=== PATIENT | male | born 1975 | race American Indian/Alaskan Native ===

== ENCOUNTER 2016-10-09 17:51 | Emergency (ER) | payer SELFPAY ==
--- NOTE | 2016-10-09 22:03 | Emergency Department Report ---
Chief Complaint: Dental/Oral Stated Complaint: TOOTHACHE Time Seen by Provider: 10/09/16 21:45 - HPI History of Present Illness: 41-year-old male presents today with right lower molar tooth ache 2 months. Patient states he chipped his tooth 2 months ago. Positive for pain and swelling. Denies history of dental problems. Denies drainage or bleeding. Tried ibuprofen without relief. Denies earache, cold symptoms, fever, chills, nausea, vomiting, chest pain, shortness of breath, abdominal pain. - ROS Review of Systems: Per HPI - Exam Vital Signs: Vital Signs 10/09/16 18:05 Temperature 98.4 F Pulse Rate 64 Respiratory 16 Rate Blood Pressure 115/74 O2 Sat by Pulse 98 Oximetry Physical Exam: General: 41-year-old male in no acute distress. Well-developed, well-nourished. Dental: Tenderness to palpation to #32. Positive for chipped tooth. No drainage or bleeding noted. CV: Regular rate and rhythm. No murmurs rubs or gallops. Lungs: Clear to auscultation bilaterally. Abdomen: No tenderness to palpation. No guarding or rebound tenderness. MSE screening note: Focused history and physical exam performed. Due to findings the following was ordered: ED Disposition for MSE Disposition: MEDICAL SCREENING EXAM-LEFT Condition: Stable Referrals: PRIMARY CARE, [Primary Care Provider] - 3-5 Days
[2016-10-09 22:16] VITALS: BP 128/90
== END 2016-10-09 22:27 | disposition left against medical advice (07) ==
LOC: ED 17:51
DX: K08.89 Other specified disorders of teeth and supporting structures (principal); Z53.21 Procedure and treatment not carried out due to patient leaving prior to being seen by health care provider